=== PATIENT | female | born 1970 | race Caucasian/White ===

== ENCOUNTER → 2020-12-27 | Outpatient (CLI) | payer OTHER | LOC: CAT 12-25 14:33 | PROVIDERS: ATTEND Family Medicine | DX: J43.8 Other emphysema (principal); J32.3 Chronic sphenoidal sinusitis; J32.0 Chronic maxillary sinusitis ==

== ENCOUNTER → 2021-05-08 | Outpatient (CLI) | payer BC, OTHER | LOC: SJCVCIMAG 09:16 | PROVIDERS: ATTEND Family Medicine | DX: I65.21 Occlusion and stenosis of right carotid artery (principal); I10 Essential (primary) hypertension; Z72.89 Other problems related to lifestyle; Z79.899 Other long term (current) drug therapy ==